=== PATIENT | female | born 1965 | race African-American/Black ===

== ENCOUNTER 2022-02-09 19:58 | Emergency (ER) | payer OTHER ==
[2022-02-09 20:16] VITALS: BP 136/76; PULSE 66; RESP 17; TEMP 98.6; BMI 27.2
== END 2022-02-09 20:33 | disposition home or self-care (01) ==
LOC: FER 19:58
DX: S92.502A Displaced unspecified fracture of left lesser toe(s), initial encounter for closed fracture (principal); Y99.9 Unspecified external cause status
CPT/HCPCS: 99281-25